=== PATIENT | male | born 1965 | race Caucasian/White ===

== ENCOUNTER → 2022-10-24 10:20 | Outpatient (BNVA) | payer OTHER, SELFPAY | PROVIDERS: Visit Provider Emergency Medicine | DX: R50.9 Fever, unspecified (principal) | CPT/HCPCS: 87400 ==

== ENCOUNTER 2024-05-17 08:05 | Emergency (ER) | payer BC, SELFPAY ==
[2024-05-17 08:25] VITALS: BP 117/93; PULSE 66; RESP 18; TEMP 36.8; O2SAT 100; BMI 29.5
--- NOTE | 2024-05-17 08:28 | CT_ITS ---
WS: [id number] CT ABDOMEN PELVIS TECHNIQUE: Noncontrast CT of the abdomen and pelvis with coronal and sagittal reformatted images. CLINICAL INFORMATION: flank pain COMPARISON: None. DLP: 873.[address] scans at [facility] use at least one of these dose optimization techniques: automated e xposure control; mA and/or kV adjustment per patient size (includes targeted exams where dose is matc hed to clinical indication); or iterative reconstruction. FINDINGS: Small amount of inflammatory stranding and edema about the splenic flexure with a few diver ticuli compatible with splenic flexure and proximal descending colon diverticulitis. Sigmoid colon is normal in appearance. Multiple bilateral renal cysts some of which are increased attenuation and likely hemorrhagic or prot einaceous. Heterogeneous increased attenuation lesion upper pole LEFT kidney measuring 4.2 cm is inde terminant. Recommend follow-up ultrasound. No hydronephrosis and either kidney. No obstructing renal or ureteral calculi. Tiny LEFT calyceal tip nonobstructing calculus. Lung bases are well aerated. Normal noncontrast liver. Normal GE junction. Noncontrast pancreas and s pleen. Normal gallbladder. Adrenal glands are normal. Normal caliber abdominal aorta. Normal sigmoid colon. No evidence of high-grade small or large bowel obstruction. Normal appendix in the RIGHT lower quadrant. Slight retrolisthesis L4 on L5. Mild prostate enlargement measuring 3.4 cm. Bilateral fat-containing inguinal hernias. CT/CT kidney stone [id number] IMPRESSION: 1. LEFT splenic flexure and proximal descending colon diverticulitis. 2. No hydronephrosis in either kidney. No obstructing renal or ureteral calcul i. 3. Heterogeneous upper pole increased attenuation lesion LEFT kidney is indete rminate measuring 4.2 cm. Recommend follow-up renal ultrasound to exclude renal neoplasm 4. No other acute findings.
--- NOTE | 2024-05-17 08:37 | ED_ITS ---
HPI - Male Genitourinary 2 General: Chief complaint: Urogenital-Male Stated complaint: Possible kidney stone Time Seen by Provider: 05/17/24 08:28 Source: patient Mode of arrival: ambulatory History of Present Illness: 59-year-[facility] of left- sided abdominal pain radiating from the groin up to the left flank. He denies dysuria no vomiting or diarrhea has had some hot flashes and chills at home. He has a history of previous kidney stone. He denies dysuria urgency or frequency. Onset (ago): day(s) Duration: constant Location: left flank Relieving factors: none Exacerbating factors: none Associated symptoms: Deny discharge, dysuria, fevers/chills, hematuria, nausea, rash, swelling, urinary incontinence, urinary retention, mass or vomiting Review of Systems 2 Const: Denies: fever(s) or chills Card: Denies: chest pain Resp: Denies: dyspnea GI: Denies: abdominal pain, nausea or vomiting : Denies: dysuria, urinary frequency, urinary urgency, urinary incontinence or hematuria Musc: Denies: neck pain or back pain Skin/Breast: Denies: rash PFSH ED 2 PFSH: Social History Smoking and tobacco/nicotine status: unknown if used tobacco/nicotine Physical Exam 2 Const: COMMON NORMALS: no acute distress GENERAL APPEARANCE: cooperative and comfortable ORIENTATION/CONSCIOUSNESS: Yes awake, Yes oriented to person, Yes oriented to place and Yes oriented to time HENMT: COMMON NORMALS: normocephalic, atraumatic and hearing grossly normal bilaterally HEAD & SCALP: normocephalic and atraumatic Resp: COMMON NORMALS: normal respiratory effort, No retractions, No use of accessory muscles and clear to auscultation bilaterally AUSCULTATION: clear to auscultation bilaterally Cardio: COMMON NORMALS: regular rate, regular rhythm and No murmurs present (Cardio) RATE: regular rate RHYTHM: regular rhythm GI: COMMON NORMALS: Soft to palpation and No hepatosplenomegaly present A USCULTATION: Yes normoactive bowel sounds PALPATION: Yes Soft to palpation, No Tenderness to palpation present (GI), No Guarding due to palpation present (GI) and Yes No hepatosplenomegaly present Extremity: COMMON NORMALS: normal to inspection, capillary refill normal, no clubbing, cyanosis or edema, no calf tenderness and no pedal edema Neuro: SENSORIUM/ORIENTATION: Yes oriented to person, Yes oriented to place and Yes oriented to time Skin: COMMON NORMALS: no rashes or lesions noted GENERAL SKIN EXAM: no rashes or lesions noted Course 2 Vital Signs: Vital signs: Vital Signs Temperature 98.2 F 05/17/24 08:25 Pulse Rate 78 05/17/24 10:13 Respiratory Rate 19 H 05/17/24 09:10 Blood Pressure 134/85 05/17/24 10:13 Pulse Oximetry 97 05/17/24 10:13 Oxygen Delivery Me thod Room Air 05/17/24 08:25 MDM - Male Medical Decision Making No evidence of left nephrolithiasis. Patient does have mild leukocytosis urine did not show any sign of infection CT shows diverticulitis. Started on Cipro Flagyl. There is no sign of abscess or perforation on the CT. Patient also given hydrocodone and promethazine to use as needed clinical diet for 2 to 3 days and advance as tolerated Medical Records I reviewed the patient's medical records. Lab Data I reviewed the patient's lab results. 05/17/24 08:33 05/17/24 08:33 Radiology Impressions Abdomen/Pelvis CT 05/17/24 08:28 IMPRESSION: 1. LEFT splenic flexure and proximal descending colon diverticulitis. 2. No hydronephrosis in either kidney. No obstructing renal or ureteral calculi. 3. Heterogeneous upper pole increased attenuation lesion LEFT kidney is indeterminate measuring 4.2 cm. Recommend follow-up renal ultrasound to exclude renal neoplasm 4. No other acute findings. Laboratory Results WBC 15.71 10^3/uL (3.29-11.43) H 05/17/24 08:33 RBC 4.88 10^6/uL (3.85-5.65) 05/17/24 08:33 Hgb 14.80 g/dL (11.27-16.99) 05/17/24 08:33 Hct 44.6 % (37-53) 05/17/24 08:33 MCV 91.4 fl (82-101) 05/17/24 08:33 MCH 30.3 pg (27-33) 05/17/24 08:33 MCHC 33.2 g/dL (30-55) 05/17/24 08:33 RDW 13.2 % (12.1-15.1) 05/17/24 08:33 Plt Count 349 10^3/cmm (157-399) 05/17/24 08:33 MPV 9.4 fL (7.4-10.4) 05/17/24 08:33 Neut % (Auto) 65.7 % 05/17/24 08:33 Lymph % (Auto) 23.6 % 05/17/24 08:33 Luna % (Auto) 8.4 % 05/17/24 08:33 Eos % (Auto) 1.3 % 05/17/24 08:33 Baso % (Auto) 0.3 % 05/17/24 08:33 Neut # (Auto) 10.33 10^3/uL (1.8-7.7) H 05/17/24 08:33 Lymph # (Auto) 3.7 10^3/uL (0.8-4.8) 05/17/24 08:33 Luna # (Auto) 1.3 10^3/uL (0.2-0.9) H 05/17/24 08:33 Eos # (Auto) 0.2 10^3/uL (0.0-0.8) 05/17/24 08:33 Baso # (Auto) 0.0 10^3/uL (0.0-0.1) 05/17/24 08:33 Nucleated RBC % (auto) 0 % 05/17/24 08:33 Nucleated RBCs # 0.0 /100WBC 05/17/24 08:33 Sodium 137 mmol/L (136-145) 05/17/24 08:33 Potassium 4.3 mmol/L (3.5-5.1) 05/17/24 08:33 Chloride 100 mmol/L (98-107) 05/17/24 08:33 Carbon Dioxide 24 mmol/L (22-29) 05/17/24 08:33 Anion Gap 17.3 (5-19) 05/17/24 08:33 BUN 22 mg/dL (6-20) H 05/17/24 08:33 Creatinine 1.2 mg/dL (0.7-1.2) 05/17/24 08:33 GFR Calculation 62.2 mL/min (90-130) L 05/17/24 08:33 Glucose 110 mg/dL (65-115) 05/17/24 08:33 Calculated Osmolality 288 mOsm/kg (285-295) 05/17/24 08:33 Calcium 9.1 mg/dL (8.5-10.5) 05/17/24 08:33 Total Bilirubin 0.8 mg/dL (0.15-1.2) 05/17/24 08:33 AST 12 U/L (0-40) 05/17/24 08:33 ALT 17 U/L (0-41) 05/17/24 08:33 Alkaline Phosphatase 97 U/L (40-130) 05/17/24 08:33 Total Protein 6.7 g/dL (6.6-8.7) 05/17/24 08:33 Albumin 4.0 g/dL (3.5-5.2) 05/17/24 08:33 Globulin 2.7 g/dL (1.3-4.6) 05/17/24 08:33 Urine Color Yellow (Yellow) 05/17/24 09:38 Urine Appearance Clear (CLEAR) 05/17/24 09:38 Urine pH 5 (5-7) 05/17/24 09:38 Ur Specific Ord 1.025 (1.005-1.030) 05/17/24 09:38 Urine Protein Trace (Negative) 05/17/24 09:38 Urine Glucose (UA) Norm (Normal) 05/17/24 09:38 Urine Ketones 1+ (Negative) H 05/17/24 09:38 Urine Blood Neg (Negative) 05/17/24 09:38 Urine Nitrate Negative (Negative) 05/17/24 09:38 Urine Bilirubin 1+ (Negative) H 05/17/24 09:38 Urine Urobilinogen Norm mg/dL (Negative) 05/17/24 09:38 Ur Leukocyte Esterase Negative (Negative) 05/17/24 09:38 Urine RBC 0-4 /hpf (0-2) H 05/17/24 09:38 Urine WBC 0-4 /hpf (0-5) H 05/17/24 09:38 Ur Squamous Epith Cells 0-4 /hpf (0-5) H 05/17/24 09:38 Amorphous Sediment Not Reportable 05/17/24 09:38 Urine Bacteria Trace /hpf (NONE) 05/17/24 09:38 Urine Mucus 2+ /hpf 05/17/24 09:38 All radiology interpretation(s) finalized by discharge Discharge Plan Discharge Patient Disposition: Home Clinical Impression: Diverticulitis Condition: Stable Prescriptions: New Cipro 500 mg tablet 500 mg PO BID Qty: 14 0RF metronidazole 500 mg tablet 500 mg PO BID 7 Days Qty: 14 0RF hydrocodone-acetaminophen 5-325 mg tablet 1 tab PO Q6H PRN (Reason: pain) Qty: 15 0RF promethazine 25 mg tablet 25 mg PO Q6H PRN (Reason: nausea and vomiting) Qty: 20 0RF No Action sertraline [Zoloft] 50 mg tablet 50 mg PO DAILY prednisone 20 mg tablet See Rx Instructions PO DAILY Qty: 19 0RF Rx Instructions: Take 3 tabs daily x 3 days, 2 tabs x 3 days, 1 tab x 3 days then 1/2 tab x 2 days. docusate sodium 100 mg capsule 100 mg PO DAILY Qty: 30 0RF Discharge Orders: Discharge ED (Routine); Ordered 05/17/24 Ordered By: Rob Chavez Referrals: Sherry Garcia FNP [Primary Care Provider] - Discharge Diet: Clear Liquid Discharge Activity: Resume usual activity Patient Instructions: Diverticulitis (ED), Clear Liquid Diet (ED), Opioid Safety, Pain Management Activity Restrictions/Additional Instructions: Thank you for choosing [facility] for your healthcare needs today. It is very important that you follow up as instructed or that you return to the Emergency Department should you have concerns or if your condition changes or worsens in any way. Follow-up with your primary care doctor. There is an incidental finding of a renal cyst which will need follow-up as an outpatient. Coding Level of Care Code ED Retanner for Carolyn Epps
[2024-05-17 08:41] LABS: Basophils % 0.3 %; Eosinophils # 0.2 10^3/uL (0.0-0.8); Eosinophils % 1.3 %; Hematocrit 44.6 % (37-53); Lymphocytes # 3.7 10^3/uL (0.8-4.8); Lymphocytes % 23.6 %; Mean Corpuscular HGB Conc 33.2 g/dL (30-55); Mean Corpuscular Hemoglobin 30.3 pg (27-33); Mean Corpuscular Volume 91.4 fl (82-101); Mean Platelet Volume 9.4 fL (7.4-10.4); Monocytes # 1.3 10^3/uL (0.2-0.9); Monocytes % 8.4 %; Neutrophils # 10.33 10^3/uL (1.8-7.7); Neutrophils % 65.7 %; Nucleated Red Blood Cells % 0 %; Platelet Count 349 10^3/cmm (157-399); Red Blood Count 4.88 10^6/uL (3.85-5.65); Red Cell Distribution Width 13.2 % (12.1-15.1); White Blood Count 15.71 10^3/uL (3.29-11.43)
[2024-05-17 08:59] LABS: Alanine Aminotransferase 17 U/L (0-41); Alkaline Phosphatase 97 U/L (40-130); Anion Gap 17.3 (5-19); Aspartate Amino Transferase 12 U/L (0-40); Blood Urea Nitrogen 22 mg/dL (6-20); Calcium 9.1 mg/dL (8.5-10.5); Carbon Dioxide 24 mmol/L (22-29); Chloride 100 mmol/L (98-107); Creatinine Clr Calc Pharmacy 79.3851; Globulin 2.7 g/dL (1.3-4.6); Glomerular Filtration Rate 62.2 mL/min (90-130); Glucose 110 mg/dL (65-115); Osmolality Calculated 288 mOsm/kg (285-295); Potassium 4.3 mmol/L (3.5-5.1); Sodium 137 mmol/L (136-145); Total Bilirubin 0.8 mg/dL (0.15-1.2); Total Protein 6.7 g/dL (6.6-8.7)
[2024-05-17 09:10] VITALS: RESP 19
[2024-05-17] MEDS: ondansetron 2 mg/ML SDV 2 mL 4 MG IVP (09:10)
[2024-05-17] MEDS: morphine 4 mg/mL SDV 1 mL IVP (09:10)
[2024-05-17 09:54] LABS: Add Urine Microscopic? YES; Bilirubin Urine 1+ (Negative); Blood Urine Neg (Negative); Glucose Urine UA Norm (Normal); Ketones Urine 1+ (Negative); Leukocyte Esterase Urine Negative (Negative); Nitrate Urine Negative (Negative); Protein Urine Trace (Negative); Specific Gravity, Urine 1.025 (1.005-1.030); Urine Appearance Clear (CLEAR); Urine Color Yellow (Yellow); Urobilinogen Urine Norm (Negative); pH Urine 5 (5-7)
[2024-05-17 10:13] VITALS: BP 134/85; PULSE 78; O2SAT 97
[2024-05-17 10:23] LABS: Add Urine Culture? No; Bacteria Urine TRACE /hpf; Mucus Urine 2+ /hpf; RBC Urine 0-4 /hpf (0-2); Squamous Epithelial Cell Urine 0-4 /hpf (0-5); WBC Urine 0-4 /hpf (0-5)
== END 2024-05-17 10:14 | disposition home or self-care (01) ==
PROVIDERS: Emergency Provider Family Medicine; PCP Nurse Practitioner
DX: K57.92 Diverticulitis of intestine, part unspecified, without perforation or abscess without bleeding (principal)
CPT/HCPCS: 74176; 80053; 81001; 85025; 96374; 96375; 99285; J2270; J2405

== ENCOUNTER → 2024-11-15 09:04 | Outpatient (BNVA) | payer BC, SELFPAY | PROVIDERS: PCP Nurse Practitioner; Visit Provider Nurse Practitioner | DX: Z12.5 Encounter for screening for malignant neoplasm of prostate (principal); F32.A Depression, unspecified; F41.9 Anxiety disorder, unspecified | CPT/HCPCS: 80053; 80061; 85025; G0103 ==

== ENCOUNTER 2024-12-29 07:10 | Day surgery (SDC) | payer BC, SELFPAY ==
[2024-12-29 07:26] VITALS: BP 141/98; PULSE 84; RESP 18; TEMP 36.5; O2SAT 96; BMI 30.7
--- NOTE | 2024-12-29 07:29 | P.HPUD_ITS ---
Surgery/Procedure H&P Update DATE OF PROCEDURE: December 29, 2024 DATE H&P PERFORMED: 12/14/24 H&P UPDATE INFORMATION: I have reviewed H&P completed within last 30 days, I have examined patient prior to procedure, No changes to prior documentation and H&P is in [facility] EMR on date indicated PLANNED PROCEDURE: Operation Date: 12/29/24 09:00 Proposed Procedures p Colonoscopy 92506, G0121, Z12.11(Not Applicable) - King Montenegro MD
--- NOTE | 2024-12-29 07:29 | W.PM.OPSUD ---
Surgery/Procedure H&P Update DATE OF PROCEDURE: December 29, 2024 DATE H&P PERFORMED: 12/14/24 H&P UPDATE INFORMATION: I have reviewed H&P completed within last 30 days, I have examined patient prior to procedure, No changes to prior documentation and H&P is in [facility] EMR on date indicated PLANNED PROCEDURE: Operation Date: 12/29/24 09:00 Proposed Procedures p Colonoscopy 60704, G0121, Z12.11(Not Applicable) - King Montenegro MD
[2024-12-29] MEDS: sodium chloride 0.9% 1,000 ML 30 ML IV (07:33)
--- NOTE | 2024-12-29 07:36 | ANES.PREANE2 ---
Pre-Anesthetic Assessment Height/Weight: Height 1.8 m Weight 99.79 kg Temp Pulse Resp BP Pulse Ox O2 Del Method 97.7 F 84 18 141/98 96 Room Air 12/29/24 07:26 12/29/24 07:26 12/29/24 07:26 12/29/24 07:26 12/29/24 07:26 12/29/24 07:26 Operation Date: 12/29/24 09:00 Proposed Procedures p Colonoscopy 47807, G0121, Z12.11(Not Applicable) - King Montenegro MD Familial anesthetic complications: None Was Beta Ovi taken within 24 hours: N/A Was Clonidine taken within 24 hours: N/A Last intake: Intake Last Liquid Date 12/28/24 Last Liquid Time 23:55 Last Solid Date 12/27/24 Last Solid Time 18:00 Social Alcohol (s) and Tobacco .5-1 pack(s) per day Exam alert, oriented x 3, clear to auscultation bilaterally and regular rate & rhythm Airway Submandibular: within normal limits Cervical ROM: within normal limits Mallampati: Class III Dentition: full Comments: Comments: Several missing History/ROS No significant history except as noted and No significant complaints Pulmonary None reported CV/HEM None reported Hx kidney stones Hepatic None reported GI None reported Metabolic None reported Musc/skel Rheumatoid Arthritis Neuropsych Anxiety and Depression Anesthetic Plan ASA status: 2 Anesthesia: Anesthesia Evaluation, General and MAC Risk of > 500 ml blood loss (7ml/kg in children): No Medications/Allergies Home Medications ?Medication ?Instructions ?Recorded ?Confirmed ?Last Taken ?Type sertraline 50 mg tablet (Zoloft) 50 mg PO DAILY #30 tabs 11/15/24 12/29/24 12/28/24 Rx Allergies Allergy/AdvReac Type Severity Reaction Status Date / Time No Known Allergies Allergy Verified 12/29/24 07:29 Current Medications Generic Name Dose Route Start Last Admin Trade Name Freq PRN Reason Stop Dose Admin Sodium Chloride 1,000 mls @ 30 mls/hr 12/29/24 07:30 12/29/24 07:33 Sodium Chloride 0.9% IV 30 mls/hr .Q24H [id number] Administration PFSH Anesthesia Social History Smoking and tobacco/nicotine status: never used tobacco/nicotine Data Anesthesia Cardiac Studies: No Data to Display
[2024-12-29 09:23] VITALS: BP 120/78; PULSE 71; RESP 18; TEMP 36.3; O2SAT 96
[2024-12-29 09:32] VITALS: BP 143/90; PULSE 75; RESP 18; TEMP 36.2; O2SAT 99
--- NOTE | 2024-12-29 09:50 | ANE.PACU2 ---
Inpatient post-anesthesia follow up: Airway intact: Yes Vital signs: Temperature 97.2 F Pulse Rate 75 Respiratory Rate 18 Blood Pressure 143/90 Pulse Oximetry 99 Oxygen Delivery Me thod Room Air Oxygen Flow Rate Fraction of Inspir ed Oxygen Hydration adequate: Yes Nausea and vomiting: No Pain level: 1 Mental status: Baseline
== END 2024-12-29 09:50 | disposition home or self-care (01) ==
PROVIDERS: PCP Nurse Practitioner; Visit Provider Surgery
PROC: 0DJD8ZZ Inspection of Lower Intestinal Tract, Via Natural or Artificial Opening Endoscopic (ICD-10-PCS; CPT 45378; principal; 2024-12-29 09:00)
DX: Z12.11 Encounter for screening for malignant neoplasm of colon (principal); K57.30 Diverticulosis of large intestine without perforation or abscess without bleeding; D12.2 Benign neoplasm of ascending colon; D12.5 Benign neoplasm of sigmoid colon; M06.9 Rheumatoid arthritis, unspecified; Z79.899 Other long term (current) drug therapy
CPT/HCPCS: 45385; 88305; J2704; J7030